=== PATIENT | female | born 1970 | race Caucasian/White ===

== ENCOUNTER 2017-01-30 13:24 | Emergency (ER) | payer MEDICAID ==
[~2017-01-30] VITALS: Ht 157.5 cm; Wt 87.0 kg
[~2017-01-30 13:24] MED LIST: AMLO5TAB4 PO; DOCU-144 PO; FER325 PO; METF500T4 PO; PANT40TA3 PO
[2017-01-30 13:45] VITALS: Ht 157.5 cm; Wt 87.0 kg
--- NOTE | 2017-01-30 18:35 | ERA ---
ER Documentation Chief Complaint Date/Time DATE: 01/30/17 TIME: 18:33 Chief Complaint here for blood transfusion HPI Patient is a 46-year-old female who presents with gradual onset, constant, progressive generalized weakness and lightheadedness for 3 weeks. Patient reports also having exertional dyspnea, no chest pain or rest dyspnea. Patient denies dark stool, bloody stool or vaginal bleeding. Patient has history of iron deficiency anemia and received a blood transfusion last year. She denies fevers, vomiting, abdominal pain. The patient was sent from a primary care clinic today for anemia requiring blood transfusion. ROS All systems reviewed and are negative except as per history of present illness. Medications Home Meds Active Scripts Amlodipine Besylate* (Norvasc*) 5 Mg Tablet, 5 MG PO DAILY for 30 Days, TAB Prov:CHARLOTTE MENA [employer]GER 06/22/16 Reported Medications Hydrochlorothiazide* (Hydrochlorothiazide*) 25 Mg Tab, 25 MG PO DAILY, #30 TAB 01/30/17 Folic Acid* (Folic Acid*) 1 Mg Tablet, 1 MG PO DAILY, TAB 01/30/17 Ergocalciferol (Vitamin D2) (VITAMIN D2) 50,000 Unit Capsule, 43049 UNIT PO Q7D , CAP 01/30/17 Omeprazole* (Omeprazole*) 40 Mg Capsule.dr, 40 MG PO DAILY, #30 CAP 01/30/17 Metformin Hcl* (Metformin Hcl*) 1,000 Mg Tablet, 1000 MG PO WITH BREAKFAST DINNE , #60 TAB 01/30/17 Discontinued Scripts Metformin Hcl* (Metformin Hcl*) 500 Mg Tablet, 500 MG PO WITH BREAKFAST DINNE, # 60 TAB Prov:CHARLOTTE MENA [employer]OURCE MANAGER 06/22/16 Docusate Sodium* (Colace*) 100 Mg Capsule, 100 MG PO BID Y for CONSTIPATION, # 60 CAP Prov:CHARLOTTE MENA [employer] MANAGER 06/22/16 Pantoprazole* (Protonix*) 40 Mg Tablet.dr, 40 MG PO BID for 30 Days, TAB Prov:CHARLOTTE MENA [employer] MANAGER 06/22/16 Ferrous Sulfate* (Ferrous Sulfate*) 325 Mg Tabec, 325 MG PO BID for 30 Days, TAB Prov:CHARLOTTE [employer]NA [employer] MANAGER 06/22/16 Allergies Allergies: Coded Allergies: No Known Allergies (Unverified Allergy, Unknown, 01/30/17) PMhx/Soc Past medical history: Iron deficiency anemia, gastritis, hypertension, diabetes mellitus, cholelithiasis Past surgical history: Social history: Denies tobacco or alcohol History of Surgery: Yes (C SECTION) Anesthesia Reaction: No Hx Neurological Disorder: No Hx Respiratory Disorders: No Hx Cardiac Disorders: No Hx Psychiatric Problems: No Hx Miscellaneous Medical Probl: Yes (GASTRITIS) Hx Alcohol Use: No Hx Substance Use: No Hx Tobacco Use: No FmHx Family History: No coronary disease, No diabetes Physical Exam Vitals Vital Signs Date Time Temp Pulse Resp B/P Pulse Ox O2 Delivery O2 Flow Rate FiO2 01/30/17 22:51 98.0 78 18 134/68 100 Room Air 01/30/17 22:15 98.0 70 18 125/64 100 Room Air 01/30/17 13:45 97.9 103 18 161/77 100 Physical Exam Const: Alert, no acute distress Head: Atraumatic Eyes: Normal Conjunctiva, no significant pallor or icterus ENT: Normal External Ears, Nose and Mouth. Mucous membranes moist Neck: Full range of motion..~ No meningismus. No JVD Resp: Clear to auscultation bilaterally, no wheezes, no rales Cardio: Regular rate and rhythm, no murmurs Abd: Soft, non tender, non distended. Normal bowel sounds Rectal: Guaiac negative brown stool. Positive control. Skin: No petechiae or rashes Back: No midline or flank tenderness Ext: No cyanosis, or edema Neur: Awake and alert, cranial nerves II through XII intact bilaterally, moves and feels 4 extremities appropriate Psych: Normal Mood and Affect Result Diagram: 01/30/17 1830 01/30/17 1830 Results 24 hrs Laboratory Tests Test 01/30/17 18:30 White Blood Count 13.710^3/ul Red Blood Count 4.7010^6/ul Hemoglobin 8.5g/dl Hematocrit 31.4% Mean Corpuscular Volume 66.8fl Mean Corpuscular Hemoglobin 18.1pg Mean Corpuscular Hemoglobin Concent 27.1g/dl Red Cell Distribution Width 17.4% Platelet Count 45354^3/UL Mean Platelet Volume 9.2fl Neutrophils % 60.8% Lymphocytes % 24.2% Monocytes % 6.3% Eosinophils % 8.2% Basophils % 0.1% Nucleated Red Blood Cells % 0.0/100WBC Neutrophils # 8.310^3/ul Lymphocytes # 3.310^3/ul Monocytes # 0.910^3/ul Eosinophils # 1.110^3/ul Basophils # 0.010^3/ul Nucleated Red Blood Cells # 0.010^3/ul Absolute Reticulocyte Count 0.132X10^6 Percent Reticulocyte Count 2.8% Prothrombin Time 13.3Sec Prothrombin Time Ratio 1.0 INR International Normalized Ratio 1.01 Sodium Level 136mmol/L Potassium Level 3.1mmol/L Chloride Level 99mmol/L Carbon Dioxide Level 23mmol/L Anion Gap 17 Blood Urea Nitrogen 9mg/dl Creatinine 0.53mg/dl Glucose Level 182mg/dl Calcium Level 9.7mg/dl Iron Level 17ug/dl Total Iron Binding Capacity 491ug/dl Percent Iron Saturation 3% SAT Ferritin 5.5ng/ml Total Bilirubin 0.1mg/dl Direct Bilirubin 0.00mg/dl Indirect Bilirubin 0.1mg/dl Aspartate Amino Transf (AST/SGOT) 24IU/L Alanine Aminotransferase (ALT/SGPT) 38IU/L Alkaline Phosphatase 89IU/L Total Protein 8.6g/dl Albumin 4.7g/dl Globulin 3.90g/dl Albumin/Globulin Ratio 1.20 Current Medications Medications (Trade) Dose Ordered Sig/Angel Route PRN Reason Start Time Stop Time Status Last Admin Dose Admin Potassium Chloride (Potassium Chloride Pwd/Soln) 40 meq ONCE ONCE PO 01/30/17 21:30 01/30/17 21:31 DC 01/30/17 21:48 Procedures/MDM EKG read by me: Time 1837, rate 80 Rhythm: Normal sinus [place]: Normal Intervals: Borderline QTC ST-T waves: no ischemic changes Ectopy: No Q-waves: No Impression: No evidence of ischemia or arrhythmia MDM: Patient is a 38-year-old female with history of iron deficiency anemia status post transfusion within the last few months. She also has history of gastritis. She comes to the ER with 2 weeks of generalized weakness and fatigue. She is found to have a hemoglobin of 8.5. There is no known underlying cardiac disease. Her low ferritin is consistent with iron deficiency anemia. I will transfuse her 1 unit of packed red blood cells given her symptoms and will discharge her after transfusion. Patient was consented for transfusion. There is no evidence of or suggestive history of GI bleed, no history of menorrhagia. Patient does state that she is compliant with taking ferrous sulfate 3 times a day. I have advised her to follow-up with her PMD for further investigation as to the cause of her recurrent iron deficiency anemia. Although the patient's hemoglobin was only slightly below 9 and she is not elderly and does not have a cardiac history, she was sent by her PMD for ultrasound, so I feel is reasonable to transfuse her at this time. Departure Diagnosis: Primary Impression: Generalized weakness Additional Impression: Iron deficiency anemia Qualified Code: D50.9 - Iron deficiency anemia, unspecified iron deficiency anemia type Condition: Stable GAGAN JONES MD January 30, 2017 18:35
[2017-01-30 18:37] LABS: ADD SCAN DIFF NO
[2017-01-30 18:42] LABS: ABNORMAL IP MESSAGE 1; BASOPHILS % 0.1 % (0.0-2.0); EOSINOPHILS # 1.1 10^3/ul (0.0-0.5); EOSINOPHILS % 8.2 % (0.0-7.0); HEMATOCRIT 31.4 % (37.0-47.0); HEMOGLOBIN 8.5 g/dl (12.0-16.0); LYMPHOCYTES # 3.3 10^3/ul (0.8-2.9); LYMPHOCYTES % 24.2 % (15.0-51.0); MEAN CORPUSCULAR HEMOGLOBIN 18.1 pg (29.0-33.0); MEAN CORPUSCULAR HGB CONC 27.1 g/dl (32.0-37.0); MEAN CORPUSCULAR VOLUME 66.8 fl (82.0-101.0); MEAN PLATELET VOLUME 9.2 fl (7.4-10.4); MONOCYTE # 0.9 10^3/ul (0.3-0.9); MONOCYTES % 6.3 % (0.0-11.0); NEUTROPHIL # 8.3 10^3/ul (1.6-7.5); NEUTROPHILS % 60.8 % (39.0-77.0); PLATELET COUNT 469 10^3/UL (140-415); RED CELL DISTRIBUTION WIDTH 17.4 % (11.5-14.5); RETICULOCYTE COUNT % 2.8 % (0.5-1.5); WHITE BLOOD COUNT 13.7 10^3/ul (4.8-10.8)
[2017-01-30 18:55] LABS: INR 1.01; PROTIME 13.3 Sec (12.2-14.2)
[2017-01-30 18:58] LABS: IRON 17 ug/dl (35-150)
[2017-01-30 18:59] LABS: ALBUMIN 4.7 g/dl (3.3-4.9); ALBUMIN/GLOBULIN RATIO 1.2; BILIRUBIN,INDIRECT 0.1 mg/dl (0-1.1); BILIRUBIN,TOTAL 0.1 mg/dl (0.2-1.3); CALCIUM 9.7 mg/dl (8.4-10.2); CREATININE 0.53 mg/dl (0.44-1.00); POTASSIUM 3.1 mmol/L (3.5-5.1); TOTAL PROTEIN 8.6 g/dl (6.1-8.1)
[2017-01-30] MEDS ORDERED: METF1000 PO (19:06)
[2017-01-30] MEDS ORDERED: OMEP40CA6 PO (19:06)
[2017-01-30 19:07] LABS: TOTAL IRON BINDING CAPACITY 491 ug/dl (241-421)
[2017-01-30] MEDS ORDERED: FOLI-49 PO (19:07)
[2017-01-30] MEDS ORDERED: ERGO500037 PO (19:07)
[2017-01-30] MEDS ORDERED: HYD25 PO (19:07)
[2017-01-30 19:35] LABS: FERRITIN 5.5 ng/ml (6.2-137.0)
[2017-01-30] MEDS ORDERED: POTASSIUM CHLORIDE 20 MEQ POWDER FOR ORAL SOLN PO ONE (21:30)
[2017-01-31 02:34] VITALS: BP 134/77; PULSE 79; RESP 18; TEMP 98.8
== END 2017-01-31 02:35 | disposition home or self-care (01) ==
LOC: E/R 13:24
DX: R53.1 Weakness (principal); D50.9 Iron deficiency anemia, unspecified; I10 Essential (primary) hypertension; E11.9 Type 2 diabetes mellitus without complications; Z79.84 Long term (current) use of oral hypoglycemic drugs
CPT/HCPCS: 36430; 80053; 82728; 83540; 85025; 85045; 85610; 86850; 86900; 86901; 86920; 93005; P9016; Z7610